=== PATIENT | male | born 1940 | race Caucasian/White ===

== ENCOUNTER 2018-02-15 23:08 | Observation (INO) | payer MEDICARE, OTHER ==
[~2018-02-15] VITALS: Ht 182.9 cm; Wt 68.0 kg
[2018-02-15 23:13] VITALS: BP 195/88; PULSE 110; RESP 18; TEMP 98.2; O2SAT 98
--- NOTE | 2018-02-15 23:31 | PD ---
HPI Chief Complaint: Psychiatric Symptoms Time Seen by Provider: 23:18 Travel History International Travel<30 days: No Contact w/Intl Traveler<30days: No Traveled to known affect area: No History of Present Illness HPI This is a 77-year-old male who presents under Seymour act initiated by the Police Department. The patient lives in [place] with his brother. At some point today he drove from [place] to the [facility]. He was found by a bystander at a gas station appearing to be confused and thus he was placed under Seymour act and brought here. The patient is alert to person, year, but believes that he is still in [place]. He was unaware that he was in [facility]. I discussed with his brother, Fantasma Mccabe ([phone]) he reports that the patient has been exhibiting signs of confusion, possible dementia, progressing over the past 6 months. He has wandered away from home twice. He plans on having him see his primary care physician about this issue when he returns to [place]. The patient has no significant past medical history that the brother is aware of. He has no psychiatric history. The patient has no medical complaints at this time. [facility] Past Medical History Diminished Hearing: Yes Hypertension: Yes (PER PATIENT) Tetanus Vaccination: Unknown Past Surgical History Surgical History: Unable to Obtain Social History Alcohol Use: Yes ([facility]) Tobacco Use: Yes Substance Use: No Allergies-Medications (Allergen,Severity, Reaction): Coded Allergies: No Known Allergies (Verified Allergy, Unknown, 02/15/18) Reported Meds & Prescriptions Reported Meds & Active Scripts Active Active Prescriptions or Reported Medications Unobtainable Review of Systems ROS Limitations: Poor Historian Except as stated in HPI: all other systems reviewed are Neg Physical Exam Exam Limitations: Poor Historian Narrative GENERAL: Pleasant well-developed well-nourished male in no acute distress. Alert to person and time, but believes that he is in [facility]. SKIN: Warm and dry. HEAD: Atraumatic. Normocephalic. EYES: Pupils equal and round. No scleral icterus. No injection or drainage. ENT: No nasal bleeding or discharge. Mucous membranes pink and moist. NECK: Trachea midline. No JVD. CARDIOVASCULAR: Regular rate and rhythm. No murmur appreciated. RESPIRATORY: No accessory muscle use. Clear to auscultation. Breath sounds equal bilaterally. GASTROINTESTINAL: Abdomen soft, non-tender, nondistended. Hepatic and splenic margins not palpable. MUSCULOSKELETAL: No obvious deformities. No clubbing. No cyanosis. No edema. NEUROLOGICAL: Awake and alert. No obvious cranial nerve deficits. Motor grossly within normal limits. Normal speech. PSYCHIATRIC: Appropriate mood and affect; insight and judgment normal. Data Data Last Documented VS Vital Signs Date Time Temp Pulse Resp B/P (MAP) Pulse Ox O2 Delivery O2 Flow Rate FiO2 02/15/18 23:13 98.2 110 18 195/88 (123) 98 Orders Orders Complete Blood Count With Diff (02/15/18 23:18) Comprehensive Metabolic Panel (02/15/18:18) Thyroid Stimulating Hormone (02/15/18:18) Urinalysis - C+S If Indicated (02/15/18:18) Chest, Single Ap (02/15/18 23:18) Drug Screen, Random Urine (02/15/18:18) Ct Brain W/O Iv Contrast(Rout) (02/15/18 ) Urine Culture (02/15/18 23:25) Place In Observation (02/16/18 ) Vital Signs (Adult) Q4H (02/16/18 00:20) Activity Oob With Assistance (02/16/18 00:20) Diet Heart Healthy (02/16/18 Breakfast) Sodium Chlor 0.9% 1000 Ml Inj (Ns 1000 M (02/16/18 00:20) Sodium Chloride 0.9% Flush (Ns Flush) (02/16/18 00:30) Sodium Chloride 0.9% Flush (Ns Flush) (02/16/18 09:00) Acetaminophen (Tylenol) (02/16/18 00:30) Ondansetron Inj (Zofran Inj) (02/16/18 00:30) Basic Metabolic Panel (Bmp) (02/17/18 06:00) Complete Blood Count With Diff (02/17/18 06:00) Pt Request For Service (02/16/18 00:20) Case Management Consult (02/16/18 00:20) Heparin Inj (Heparin Inj) (02/16/18 00:30) Naloxone Inj (Narcan Inj) (02/16/18 00:30) Docusate Sodium-Senna (Celsa-Colace) (02/16/18 09:00) Magnesium Hydroxide Liq (Milk Of Magnesi (02/16/18 00:30) Sennosides (Senokot) (02/16/18 00:30) Bisacodyl Supp (Dulcolax Supp) (02/16/18 00:30) Lactulose Liq (Lactulose Liq) (02/16/18 00:30) Admit Order (Ed Use Only) (02/16/18 00:21) Labs Laboratory Tests Test 02/15/18 23:20 02/15/18 23:25 White Blood Count 9.6 TH/MM3 Red Blood Count 4.60 MIL/MM3 Hemoglobin 15.5 GM/DL Hematocrit 45.3 % Mean Corpuscular Volume 98.3 FL Mean Corpuscular Hemoglobin 33.7 PG Mean Corpuscular Hemoglobin Concent 34.3 % Red Cell Distribution Width 13.6 % Platelet Count 241 TH/MM3 Mean Platelet Volume 7.9 FL Neutrophils (%) (Auto) 70.3 % Lymphocytes (%) (Auto) 15.8 % Monocytes (%) (Auto) 10.9 % Eosinophils (%) (Auto) 2.4 % Basophils (%) (Auto) 0.6 % Neutrophils # (Auto) 6.8 TH/MM3 Lymphocytes # (Auto) 1.5 TH/MM3 Monocytes # (Auto) 1.1 TH/MM3 Eosinophils # (Auto) 0.2 TH/MM3 Basophils # (Auto) 0.1 TH/MM3 CBC Comment DIFF FINAL Differential Comment Blood Urea Nitrogen 14 MG/DL Creatinine 1.63 MG/DL Random Glucose 106 MG/DL Total Protein 7.9 GM/DL Albumin 3.7 GM/DL Calcium Level 8.7 MG/DL Alkaline Phosphatase 105 U/L Aspartate Amino Transf (AST/SGOT) 7 U/L Alanine Aminotransferase (ALT/SGPT) 10 U/L Total Bilirubin 1.2 MG/DL Sodium Level 139 MEQ/L Potassium Level 3.9 MEQ/L Chloride Level 104 MEQ/L Carbon Dioxide Level 25.4 MEQ/L Anion Gap 10 MEQ/L Estimat Glomerular Filtration Rate 41 ML/MIN Thyroid Stimulating Hormone 3rd Gen 2.250 uIU/ML Urine Color YELLOW Urine Turbidity CLEAR Urine pH 5.5 Urine Specific [place] 1.024 Urine Protein 30 mg/dL Urine Glucose (UA) NEG mg/dL Urine Ketones 10 mg/dL Urine Occult Blood NEG Urine Nitrite NEG Urine Bilirubin NEG Urine Urobilinogen LESS THAN 2.0 MG/DL Urine Leukocyte Esterase NEG Urine RBC 2 /hpf Urine WBC 2 /hpf Urine Squamous Epithelial Cells <1 /hpf Urine Bacteria RARE /hpf Urine Hyaline Casts 3 /lpf Urine Mucus FEW /lpf Microscopic Urinalysis Comment CATH-CULTURE IND Urine Opiates Screen NEG Urine Barbiturates Screen NEG Urine Amphetamines Screen NEG Urine Benzodiazepines Screen NEG Urine Cocaine Screen NEG Urine Cannabinoids Screen NEG MDM Medical Decision Making Medical Screen Exam Complete: Yes Emergency Medical Condition: Yes Medical Record Reviewed: Yes Differential Diagnosis Dementia, delirium, sepsis, meningitis, psychosis Narrative Course 77-year-old male who by history appears to have had progressive confusion over the past 6 months, certainly his history is most consistent with dementia. He has no psychiatric issue that would require psychiatric evaluation unless the Seymour act will be lifted by Dr. Shoemaker. I did discuss with the brother that the hospice case manager will get in touch with him in regards to facilitating transport back home. The brother reports that he does have people who would be able to come and package pick up the patient and have him brought back home and he plans on having him follow-up with his primary care physician as soon as he returns home. CT brain reveals no acute abnormality's, old lacunar infarct, chest x-ray reveals no acute abnormalities, GFR is 41 otherwise lab work is unremarkable. I discussed with the hospice case manager to help facilitate transportation at some point. The patient will be admitted for observation. Diagnosis Primary Impression: Dementia Admitting Information Admitting Physician Requests: Observation Scripts Unable to Obtain Active Prescriptions or Reported Meds Alhaji Live Feb 15, 2018 23:31
[2018-02-15 23:42] LABS: BACTERIA, URINE RARE /hpf; BILIRUBIN, URINE NEG (NEG); BLOOD, URINE NEG (NEG); GLUCOSE,URINE NEG (NEG); HYALINE CAST, URINE 3 /lpf (RARE); KETONE, URINE 10 mg/dL (NEG); MUCUS URINE FEW /lpf (OCC); NITRITE,URINE NEG (NEG); PH, URINE 5.5 (5.0-8.5); SQUAMOUS EPITHELIAL CELL URINE <1 /hpf (0-5); URINE COLOR YELLOW (YELLW/STRAW); URINE LEUKOCYTE ESTERASE NEG (NEG)
[2018-02-15 23:49] LABS: AUTOMATED NEUTROPHIL # 6.8 TH/MM3 (1.8-7.7); BASOPHIL # 0.1 TH/MM3 (0-0.2); BASOPHIL % 0.6 % (0.0-2.0); EOSINOPHIL # 0.2 TH/MM3 (0-0.4); EOSINOPHIL % 2.4 % (0.0-4.0); HEMATOCRIT 45.3 % (39.0-51.0); HEMOGLOBIN 15.5 GM/DL (13.0-17.0); LYMPH % 15.8 % (9.0-44.0); LYMPHOCYTE # 1.5 TH/MM3 (1.0-4.8); MEAN CELL VOLUME 98.3 FL (80.0-100.0); MEAN CORPUSCULAR HEMOGLOBIN 33.7 PG (27.0-34.0); MEAN CORPUSCULAR HGB CONC 34.3 % (32.0-36.0); MEAN PLATELET VOLUME 7.9 FL (7.0-11.0); MONO % 10.9 % (0.0-8.0); MONOCYTE # 1.1 TH/MM3 (0-0.9); NEUT % 70.3 % (16.0-70.0); PLATELET COUNT 241 TH/MM3 (150-450); RED CELL DISTRIBUTION WIDTH 13.6 % (11.6-17.2); WHITE BLOOD COUNT 9.6 TH/MM3 (4.0-11.0)
--- NOTE | 2018-02-15 23:53 | RADRPT ---
EXAM DATE: 02/15/2018 11:40 PM EDT AGE/SEX: 77 years / Male INDICATIONS: Shortness of breath. CLINICAL DATA: This is the patient's initial encounter. Patient reports that signs and symptoms have been present for 3 days and indicates a pain score of 2/10. MEDICAL/SURGICAL HISTORY: None. None. COMPARISON: No prior exams available for comparison. FINDINGS: A single AP view of the chest demonstrates the lungs to be symmetrically aerated without evidence of mass, infiltrate or effusion. Linear atelectasis or scarring right lung base. The cardiomediastinal c ontours are unremarkable. Osseous structures are intact. CONCLUSION: No active disease. Linear scarring right lung base. Electronically signed by: Trevor Lamas MD 02/15/2018 11:51 PM EDT
[2018-02-15 23:56] LABS: ALBUMIN 3.7 GM/DL (3.4-5.0); ALT (GPT) 10 U/L (12-78); AST (GOT) 7 U/L (15-37); BICARBONATE 25.4 MEQ/L (21.0-32.0); BLOOD UREA NITROGEN 14 MG/DL (7-18); CALCIUM 8.7 MG/DL (8.5-10.1); CHLORIDE 104 MEQ/L (98-107); CREATININE 1.63 MG/DL (0.60-1.30); GLOMERULAR FILTRATION RATE 41 ML/MIN (>89); GLUCOSE,RANDOM 106 MG/DL (74-106); SODIUM (NA) 139 MEQ/L (136-145)
--- NOTE | 2018-02-15 23:59 | RADRPT ---
EXAM DATE: 02/15/2018 11:49 PM EDT AGE/SEX: 77 years / Male INDICATIONS: Altered mental status. CLINICAL DATA: This is the patient's initial encounter. Patient reports that signs and symptoms have been present for 1 day and indicates a pain score of 0/10. MEDICAL/SURGICAL HISTORY: Hypertension. None. RADIATION DOSE: 56.35 CTDI (mGy) COMPARISON: No prior exams available for comparison. TECHNIQUE: CT of the head without contrast. Using automated exposure control and adjustment of the mA and/or kV according to patient size, radiation dose was kept as low as reasonably achievable to ob tain optimal diagnostic quality images. FINDINGS: Cerebrum: Lacunar infarct noted left basal ganglia, remote. Chronic white matter ischemic changes kennedy spected. No mass, hemorrhage or shift. No recent infarct identified. Posterior Fossa: The cerebellum and brainstem are intact. The 4th ventricle is midline. The cerebe llopontine angle is unremarkable. Extracranial: The visualized portion of the orbits is intact. Skull: The calvaria is intact. No evidence of skull fracture. CONCLUSION: 1. No acute intracranial abnormalities. 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 Electronically signed by: Trevor Lamas MD 02/15/2018 11:57 PM EDT
[2018-02-16] VITALS (7 sets, daily range): BP systolic 148–178; BP diastolic 61–85; PULSE 59–73; RESP 16–20; TEMP 97.6–99.4; O2SAT 94–97
[2018-02-16 00:06] LABS: ALKALINE PHOSPHATASE 105 U/L (45-117); TOTAL BILIRUBIN ADULT 1.2 MG/DL (0.2-1.0); TOTAL PROTEIN 7.9 GM/DL (6.4-8.2)
--- NOTE | 2018-02-16 00:10 | PD ---
Physical Exam Date Seen by Provider: Feb 16, 2018 Data Data Last Documented VS Vital Signs Date Time Temp Pulse Resp B/P (MAP) Pulse Ox O2 Delivery O2 Flow Rate FiO2 02/15/18 23:13 98.2 110 18 195/88 (123) 98 Orders Orders Complete Blood Count With Diff (02/15/18 23:18) Comprehensive Metabolic Panel (02/15/18 23:18) Thyroid Stimulating Hormone (02/15/18 23:18) Urinalysis - C+S If Indicated (02/15/18 23:18) Chest, Single Ap (02/15/18 23:18) Drug Screen, Random Urine (02/15/18 23:18) Ct Brain W/O Iv Contrast(Rout) (02/15/18 ) Urine Culture (02/15/18 23:25) Labs Laboratory Tests Test 02/15/18 23:20 02/15/18 23:25 White Blood Count 9.6 TH/MM3 Red Blood Count 4.60 MIL/MM3 Hemoglobin 15.5 GM/DL Hematocrit 45.3 % Mean Corpuscular Volume 98.3 FL Mean Corpuscular Hemoglobin 33.7 PG Mean Corpuscular Hemoglobin Concent 34.3 % Red Cell Distribution Width 13.6 % Platelet Count 241 TH/MM3 Mean Platelet Volume 7.9 FL Neutrophils (%) (Auto) 70.3 % Lymphocytes (%) (Auto) 15.8 % Monocytes (%) (Auto) 10.9 % Eosinophils (%) (Auto) 2.4 % Basophils (%) (Auto) 0.6 % Neutrophils # (Auto) 6.8 TH/MM3 Lymphocytes # (Auto) 1.5 TH/MM3 Monocytes # (Auto) 1.1 TH/MM3 Eosinophils # (Auto) 0.2 TH/MM3 Basophils # (Auto) 0.1 TH/MM3 CBC Comment DIFF FINAL Differential Comment Blood Urea Nitrogen 14 MG/DL Creatinine 1.63 MG/DL Random Glucose 106 MG/DL Total Protein 7.9 GM/DL Albumin 3.7 GM/DL Calcium Level 8.7 MG/DL Alkaline Phosphatase 105 U/L Aspartate Amino Transf (AST/SGOT) 7 U/L Alanine Aminotransferase (ALT/SGPT) 10 U/L Total Bilirubin 1.2 MG/DL Sodium Level 139 MEQ/L Potassium Level 3.9 MEQ/L Chloride Level 104 MEQ/L Carbon Dioxide Level 25.4 MEQ/L Anion Gap 10 MEQ/L Estimat Glomerular Filtration Rate 41 ML/MIN Thyroid Stimulating Hormone 3rd Gen 2.250 uIU/ML Urine Color YELLOW Urine Turbidity CLEAR Urine pH 5.5 Urine Specific [place] 1.024 Urine Protein 30 mg/dL Urine Glucose (UA) NEG mg/dL Urine Ketones 10 mg/dL Urine Occult Blood NEG Urine Nitrite NEG Urine Bilirubin NEG Urine Urobilinogen LESS THAN 2.0 MG/DL Urine Leukocyte Esterase NEG Urine RBC 2 /hpf Urine WBC 2 /hpf Urine Squamous Epithelial Cells <1 /hpf Urine Bacteria RARE /hpf Urine Hyaline Casts 3 /lpf Urine Mucus FEW /lpf Microscopic Urinalysis Comment CATH-CULTURE IND Urine Opiates Screen NEG Urine Barbiturates Screen NEG Urine Amphetamines Screen NEG Urine Benzodiazepines Screen NEG Urine Cocaine Screen NEG Urine Cannabinoids Screen NEG MDM Medical Record Reviewed: Yes Supervised Visit with GERMAIN: Yes Narrative Course Patient is a 77-year-old male who presents the emergency room under Seymour act that was initiated by Police Department as patient was found at a gas station appearing confused. Patient lives at home with his brother who is currently in the hospital having a surgical procedure. Apparently, patient took his brother' s keys and ended up in [facility]. Patients brother was notified, reports that patient has wandered off like this in the past- reports concerns for possible dementia. Patient denies si/hi at this time. He is pleasantly confused. Seymour Act lifted as patient displays no intent to harm himself or others. Diagnosis Primary Impression: Dementia Scripts Unable to Obtain Active Prescriptions or Reported Meds Milly Shoemaker DO Feb 16, 2018 00:10
[2018-02-16] MEDS: SODIUM CHLOR 0.9% 1000 ML INJ 1,000 ML IV SCH ×5 (00:20→20:05)
[2018-02-16] MEDS ORDERED: ONDANSETRON ODT 4 MG TAB PO PRN (00:30)
[2018-02-16] MEDS ORDERED: SODIUM CHLORIDE 0.9% FLUSH 10 ML FLUSH IV FLUSH PRN (00:30)
[2018-02-16] MEDS ORDERED: NALOXONE HCL 0.4 MG/ML AMP IV PUSH PRN (00:30)
[2018-02-16] MEDS ORDERED: LACTULOSE SYRUP 20 GM/30 ML CUP PO PRN (00:30)
[2018-02-16] MEDS ORDERED: SENNOSIDES 8.6 MG TAB PO PRN (00:30)
[2018-02-16] MEDS ORDERED: MAGNESIUM HYDROXIDE SUSP 30 ML CUP PO PRN (00:30)
[2018-02-16] MEDS ORDERED: BISACODYL 10 MG SUPP RECTAL PRN (00:30)
[2018-02-16] MEDS ORDERED: ACETAMINOPHEN 325 MG TAB PO PRN (00:30)
[2018-02-16] MEDS ORDERED: LORazepam 1 MG TAB PO PRN (03:45)
[2018-02-16] MEDS ORDERED: LORazepam 2 MG TAB PO PRN (03:45)
[2018-02-16] MEDS ORDERED: FLUMAZENIL 0.5 MG/5 ML VIAL IV PUSH PRN (03:45)
[2018-02-16] MEDS ORDERED: LORazepam 2 MG/ML VIAL IV PUSH PRN ×4 (03:45)
--- NOTE | 2018-02-16 03:45 | HHI.HP ---
[facility]PI [facility] Physician Unknown Admission Diagnosis Dementia Diagnoses: Travel History International Travel<30 Days: No Contact w/Intl Traveler <30 Da: No Traveled to Known Affected Are: No History of Present Illness 77-year-old male who presented to the emergency department under Seymour act by the Police Department. The patient is unable to describe the events that led to his arrival in the ED. Per ED documentation the patient was found at a gas station in a confused state and was placed under Seymour act and brought to the emergency department for further evaluation. The patient reports that he lives in [place]. He states he drove to [facility] to see "if they have all the sickness here." He is cooperative and attempts to answer my questions but states he cannot remember any of his past medical history. He does not know what medications he takes. The patient reportedly lives with his brother, Fantasma Mccabe ([phone]) who reports that the patient has been exhibiting increasing confusion that has been progressing over the past 6 months. The patient denies any pain. He has no complaints at this time. Review of Systems Except as stated in HPI: all other systems reviewed are Neg Past Family Social History Past Medical History Per ED documentation, the patient's brother reports that the patient has no significant past medical history Past Surgical History The patient states he had surgery on his leg although he does not know which one or what the surgery was for Reported Medications Reported Meds & Active Scripts Active Active Prescriptions or Reported Medications Unobtainable Allergies: Coded Allergies: No Known Allergies (Verified Allergy, Unknown, 02/15/18) Family History Negative for CAD/DM Social History Smokes approximately 1 pack per day. Drinks 2-3 beers daily. Denies illicit drugs. Physical Exam Vital Signs Vital Signs Date Time Temp Pulse Resp B/P (MAP) Pulse Ox O2 Delivery O2 Flow Rate FiO2 02/15/18 23:13 98.2 110 18 195/88 (123) 98 Physical Exam GENERAL: male sitting up in bed SKIN: No rashes, ecchymoses or lesions. Cool and dry. HEAD: Atraumatic. Normocephalic. No temporal or scalp tenderness. EYES: Pupils equal round and reactive. Extraocular motions intact. No scleral icterus. No injection or drainage. ENT: Nose without bleeding, purulent drainage or septal hematoma. Throat without erythema, tonsillar hypertrophy or exudate. Uvula midline. Airway patent. NECK: Trachea midline. No JVD or lymphadenopathy. Supple, nontender, no meningeal signs. CARDIOVASCULAR: Regular rate and rhythm without murmurs, gallops, or rubs. RESPIRATORY: Clear to auscultation. Breath sounds equal bilaterally. No wheezes , rales, or rhonchi. GASTROINTESTINAL: Abdomen soft, non-tender, nondistended. No hepato-splenomegaly , or palpable masses. No guarding. MUSCULOSKELETAL: Extremities without clubbing, cyanosis, or edema. No joint tenderness, effusion, or edema noted. No calf tenderness. NEUROLOGICAL: Awake and alert. Pleasantly confused. Cranial nerves II through XII intact. Motor and sensory grossly within normal limits. Normal speech. Laboratory Laboratory Tests Test 02/15/18 23:20 02/15/18 23:25 White Blood Count 9.6 Red Blood Count 4.60 Hemoglobin 15.5 Hematocrit 45.3 Mean Corpuscular Volume 98.3 Mean Corpuscular Hemoglobin 33.7 Mean Corpuscular Hemoglobin Concent 34.3 Red Cell Distribution Width 13.6 Platelet Count 241 Mean Platelet Volume 7.9 Neutrophils (%) (Auto) 70.3 Lymphocytes (%) (Auto) 15.8 Monocytes (%) (Auto) 10.9 Eosinophils (%) (Auto) 2.4 Basophils (%) (Auto) 0.6 Neutrophils # (Auto) 6.8 Lymphocytes # (Auto) 1.5 Monocytes # (Auto) 1.1 Eosinophils # (Auto) 0.2 Basophils # (Auto) 0.1 CBC Comment DIFF FINAL Differential Comment Blood Urea Nitrogen 14 Creatinine 1.63 Random Glucose 106 Total Protein 7.9 Albumin 3.7 Calcium Level 8.7 Alkaline Phosphatase 105 Aspartate Amino Transf (AST/SGOT) 7 Alanine Aminotransferase (ALT/SGPT) 10 Total Bilirubin 1.2 Sodium Level 139 Potassium Level 3.9 Chloride Level 104 Carbon Dioxide Level 25.4 Anion Gap 10 Estimat Glomerular Filtration Rate 41 Thyroid Stimulating Hormone 3rd Gen 2.250 Urine Color YELLOW Urine Turbidity CLEAR Urine pH 5.5 Urine Specific [place] 1.024 Urine Protein 30 Urine Glucose (UA) NEG Urine Ketones 10 Urine Occult Blood NEG Urine Nitrite NEG Urine Bilirubin NEG Urine Urobilinogen LESS THAN 2.0 Urine Leukocyte Esterase NEG Urine RBC 2 Urine WBC 2 Urine Squamous Epithelial Cells <1 Urine Bacteria RARE Urine Hyaline Casts 3 Urine Mucus FEW Microscopic Urinalysis Comment CATH-CULTURE IND Urine Opiates Screen NEG Urine Barbiturates Screen NEG Urine Amphetamines Screen NEG Urine Benzodiazepines Screen NEG Urine Cocaine Screen NEG Urine Cannabinoids Screen NEG Date/Time Source Procedure Growth Status 02/15/18 23:25 Urine Clean Catch Urine Culture Pending Received Result Diagram: 02/15/18231902/15/182319 Caprini VTE Risk Assessment Caprini VTE Risk Assessment: Mod/High Risk (score >= 2) Caprini Risk Assessment Model Point Value = 1 Point Value = 2 Point Value = 3 Point Value = 5 Age 41-60 Minor surgery BMI > 25 kg/m2 Swollen legs Varicose veins or History of unexplained or recurrent spontaneous Oral contraceptives or hormone replacement Sepsis (< 1 month) Serious lung disease, including pneumonia (< 1 month) Abnormal pulmonary function Acute myocardial infarction Congestive heart failure (< 1 month) History of inflammatory bowel disease Medical patient at bed rest Age 61-74 Arthroscopic surgery Major open surgery (> 45 min) Laparoscopic surgery (> 45 min) Malignancy Confined to bed (> 72 hours) Immobilizing plaster cast Central venous access Age >= 75 History of VTE Family history of VTE Factor V Leiden Prothrombin 10003D Lupus anticoagulant Anticardiolipin antibodies Elevated serum homocysteine Heparin-induced thrombocytopenia Other congenital or acquired thrombophilia Stroke (< 1 month) Elective arthroplasty Hip, pelvis, or leg fracture Acute spinal cord injury (< 1 month) Prophylaxis Regimen Total Risk Factor Score Risk Level Prophylaxis Regimen 0-1 Low Early ambulation 2 Moderate Order ONE of the following: *Sequential Compression Device (SCD) *Heparin 5000 units SQ BID 3-4 Higher Order ONE of the following medications: *Heparin 5000 units SQ TID *Enoxaparin/Lovenox 40 mg SQ daily (WT < 150 kg, CrCl > 30 mL/min) *Enoxaparin/Lovenox 30 mg SQ daily (WT < 150 kg, CrCl > 10-29 mL/min) *Enoxaparin/Lovenox 30 mg SQ BID (WT < 150 kg, CrCl > 30 mL/min) AND/OR *Sequential Compression Device (SCD) 5 or more Highest Order ONE of the following medications: *Heparin 5000 units SQ TID (Preferred with Epidurals) *Enoxaparin/Lovenox 40 mg SQ daily (WT < 150 kg, CrCl > 30 mL/min) *Enoxaparin/Lovenox 30 mg SQ daily (WT < 150 kg, CrCl > 10-29 mL/min) *Enoxaparin/Lovenox 30 mg SQ BID (WT < 150 kg, CrCl > 30 mL/min) AND *Sequential Compression Device (SCD) Assessment and Plan Assessment and Plan Assessment/plan: 1. Dementia/altered mental status Head CT negative for acute process Urine drug screen negative Alcohol level pending Suspect progressively worsening chronic dementia Case management consulted to assist with transport back to [place] where the patient will be cared for by his brother 2. Acute kidney injury Likely chronic component, no baseline for comparison IV fluid hydration Monitor renal function 3. Alcohol abuse Thiamine/folate/multivitamin CIWA protocol Monitor for signs of withdrawal FEN Heart healthy diet Electrolytes: Monitor and replete as needed Heparin NS at 100 cc/hour Milly Neves MD Feb 16, 2018 03:45
[2018-02-16] MEDS: SODIUM CHLORIDE 0.9% FLUSH 10 ML FLUSH IV FLUSH SCH ×2 (09:00→21:00)
[2018-02-16] MEDS: DOCUSATE SODIUM 50 MG/SENNA 8.6 MG TAB PO SCH ×2 (09:00→21:00)
[2018-02-16] MEDS: THIAMINE HCL 100 MG TAB PO SCH (10:05)
[2018-02-16] MEDS: MULTIVITAMINS/MINERALS THERAPEUTIC TAB PO SCH (10:05)
[2018-02-16] MEDS: FOLIC ACID 1 MG TAB PO SCH (10:05)
[2018-02-16] MEDS ORDERED: CIPROFLOXACIN 500 MG TAB PO ONE (12:15)
[2018-02-16] MEDS: HEPARIN SODIUM - SQ 10,000 UNITS/ML VIAL SQ SCH ×3 (13:07→23:35)
--- NOTE | 2018-02-16 17:41 | HHI.PR ---
Subjective Remarks Follow up on patient with dementia. Patient seen and examined. Patient states he feels well. He denies any medical complaints. He denies any fever chills. Denies any headache, vision changes or dizziness. He denies any nausea, vomiting or abdominal pain. He denies any chest pain or dyspnea. He denies any complaints of dysuria. Denies any diarrhea or constipation. He knows he is in the hospital but cannot recall the name. He is able to correctly answer the year, city and state. He is unable to tell me who the president is. Reportedly, patient lives in [place] with his brother and drove his brother' s car to [facility] and was found confused at a gas station in place under Seymour act. Seymour act was listed in the ED. Patient recently underwent total knee replacement surgery and is unable to care for the patient at this time. Objective Vitals Vital Signs Date Time Temp Pulse Resp B/P (MAP) Pulse Ox O2 Delivery O2 Flow Rate FiO2 02/16/18 15:02 97.6 65 16 148/65 (92) 95 02/16/18 13:45 98.0 61 16 160/69 (99) 96 02/16/18 13:22 02/16/18 13:08 65 18 156/68 (97) 95 Room Air 02/16/18 10:02 65 20 175/77 (109) 95 Room Air 02/16/18 06:18 98.2 70 16 178/85 (116) 94 Room Air 02/15/18 23:13 98.2 110 18 195/88 (123) 98 Result Diagram: 02/15/18 2320 02/15/18 2320 Imaging Last Impressions Chest X-Ray 02/15/18 2318 Signed Impressions: CONCLUSION: No active disease. Linear scarring right lung base. Head CT 02/15/18 0000 Signed Impressions: CONCLUSION: 1. No acute intracranial abnormalities. 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 Objective Remarks GENERAL: Well-developed well-nourished elderly male patient, in no acute distress. Awake and alert. A&O x 2. SKIN: No rashes, ecchymoses or lesions. Cool and dry. HEAD: Atraumatic. Normocephalic. No temporal or scalp tenderness. EYES: Pupils equal round and reactive. Extraocular motions intact. No scleral icterus. No injection or drainage. ENT: Nose without bleeding or purulent drainage. Airway patent. MMM. NECK: Trachea midline. CARDIOVASCULAR: Regular rate and rhythm without murmurs, gallops, or rubs. RESPIRATORY: Clear to auscultation. Breath sounds equal bilaterally. No wheezes , rales, or rhonchi. GASTROINTESTINAL: Abdomen soft, non-tender, nondistended. No hepato-splenomegaly , or palpable masses. No guarding. MUSCULOSKELETAL: Extremities without clubbing, cyanosis, or edema. No calf tenderness. NEUROLOGICAL: Awake and alert. Pleasantly confused. Cranial nerves II through XII grossly intact. Motor and sensory grossly within normal limits. Normal speech. PSYCHIATRIC: Calm and cooperative with examination. Procedures None A/P Assessment and Plan 77-year-old male with suspected dementia who presented to the emergency department under Seymour act. Altered mental status/suspected dementia Patient lives with his brother who has recently undergone total knee replacement surgery and is unable to care for him at this time Patient is unable to return home alone, will need supervision at discharge Urine tox screen negative -CM assisting with discharge plan. -fall precautions -PT eval/tx Possible JAQUELINE on CKD Creatinine 1.63, no labs available for baseline comparison -Given IV fluids -Avoid nephrotoxic agent -Continue to monitor kidney function, repeat BMP in a.m. DVT prophylaxis -Heparin Yue Schwab Feb 16, 2018 17:41
[2018-02-17 04:06] VITALS: BP 155/84; PULSE 66; RESP 16; TEMP 97.7; O2SAT 96
[2018-02-17 07:48] VITALS: BP 147/65; PULSE 63; RESP 20; TEMP 98; O2SAT 97
[2018-02-17 07:54] LABS: BICARBONATE 21.8 MEQ/L (21.0-32.0); CALCIUM 8.3 MG/DL (8.5-10.1); CREATININE 1.6 MG/DL (0.60-1.30)
[2018-02-17] MEDS: DOCUSATE SODIUM 50 MG/SENNA 8.6 MG TAB PO SCH ×2 (09:06→20:19)
[2018-02-17] MEDS: MULTIVITAMINS/MINERALS THERAPEUTIC TAB PO SCH (09:06)
[2018-02-17] MEDS: SODIUM CHLORIDE 0.9% FLUSH 10 ML FLUSH IV FLUSH SCH ×2 (09:06→20:19)
[2018-02-17] MEDS: FOLIC ACID 1 MG TAB PO SCH (09:06)
[2018-02-17] MEDS: THIAMINE HCL 100 MG TAB PO SCH (09:06)
[2018-02-17] MEDS ORDERED: INFLUENZA VIRUS VACCINE (QUADRIVALENT) 0.5 ML SYR IM ONE (10:00)
[2018-02-17 11:42] VITALS: BP 179/72; PULSE 69; RESP 16; TEMP 97.4; O2SAT 97
--- NOTE | 2018-02-17 11:43 | HHI.PR ---
Subjective Remarks Follow up on patient with dementia. Patient seen and examined. Patient denies any medical complaints. States he feels well. Denies any fever chills. Denies any nausea, vomiting or abdominal pain. Denies any chest pain or shortness of breath. Denies any urinary difficulties, diarrhea or constipation. Discussed with nursing staff, no acute issues noted however patient did try to leave several times last night. Objective Vitals Vital Signs Date Time Temp Pulse Resp B/P (MAP) Pulse Ox O2 Delivery O2 Flow Rate FiO2 02/17/18 07:48 98.0 63 20 147/65 (92) 97 02/17/18 04:06 97.7 66 16 155/84 (107) 96 02/16/18 23:31 97.7 59 17 171/61 (97) 97 02/16/18 19:41 99.4 73 18 174/74 (107) 97 02/16/18 15:02 97.6 65 16 148/65 (92) 95 02/16/18 13:45 98.0 61 16 160/69 (99) 96 02/16/18 13:22 02/16/18 13:08 65 18 156/68 (97) 95 Room Air I/O 02/16/18 02/16/18 02/16/18 02/17/18 02/17/18 02/17/18 07:00 15:00 23:00 07:00 15:00 23:00 Intake Total 981 ml Balance 981 ml Intake Oral 480 ml IV Total 501 ml # Voids 3 Result Diagram: 02/15/18 2320 02/17/18 0630 Imaging Last Impressions Chest X-Ray 02/15/18 2318 Signed Impressions: CONCLUSION: No active disease. Linear scarring right lung base. Head CT 02/15/18 0000 Signed Impressions: CONCLUSION: 1. No acute intracranial abnormalities. 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 Objective Remarks GENERAL: Well-developed well-nourished elderly male patient, in no acute distress. Awake and alert. A&O x 2. SKIN: No rashes, ecchymoses or lesions. Cool and dry. HEAD: Atraumatic. Normocephalic. EYES: Pupils equal round and reactive. Extraocular motions intact. No scleral icterus. No injection or drainage. ENT: Nose without bleeding or purulent drainage. Airway patent. MMM. NECK: Trachea midline. CARDIOVASCULAR: Regular rate and rhythm without murmurs, gallops, or rubs. RESPIRATORY: Nonlabored. Clear to auscultation. Breath sounds equal bilaterally. No wheezes, rales, or rhonchi. GASTROINTESTINAL: Abdomen soft, non-tender, nondistended. No guarding. MUSCULOSKELETAL: Extremities without clubbing, cyanosis, or edema. No calf tenderness. NEUROLOGICAL: Awake and alert. Pleasantly confused. Cranial nerves II through XII grossly intact. Motor and sensory grossly within normal limits. Nonfocal. Normal speech. PSYCHIATRIC: Calm and cooperative with examination. Procedures None A/P Assessment and Plan 77-year-old male with suspected dementia who presented to the emergency department under [place] act. Altered mental status/suspected dementia Patient lives with his brother who has recently undergone total knee replacement surgery and is unable to care for him at this time Patient is unable to return home alone, will need supervision at discharge Urine tox screen negative -CM assisting with discharge plan. CM discussed with patients brother today who is still in the hospital but plans to have brother return home once he himself is discharged from the hospital. -fall precautions -PT eval - no PT needs identified but requires supervision at home for safety Hypertension -Patient started on Norvasc 5 mg daily -Clonidine as needed with parameters -Continue to monitor BP and adjust treatment accordingly Probable CKD Creatinine 1.63, no labs available for baseline comparison -Given IV fluids -creatinine stable -Avoid nephrotoxic agent -Continue to monitor kidney function, repeat BMP in a.m. DVT prophylaxis -Heparin Discharge Planning Not ready for discharge secondary to no safe discharge plan at this time. Patient requires supervision at home and his brother who is a secondary teacher is currently in the hospital having recently undergone a total knee replacement. Case management assisting with ongoing DC planning. Yue Schwab Feb 17, 2018 11:43
[2018-02-17] MEDS ORDERED: amLODIPine BESYLATE 5 MG TAB PO ONE (11:45)
[2018-02-17] MEDS ORDERED: cloNIDine HCL 0.1 MG TAB PO PRN (11:45)
[2018-02-17] MEDS: HEPARIN SODIUM - SQ 10,000 UNITS/ML VIAL SQ SCH ×2 (12:38→22:54)
[2018-02-17 13:22] LABS: AUTOMATED NEUTROPHIL # 4.8 TH/MM3 (1.8-7.7); BASOPHIL # 0.1 TH/MM3 (0-0.2); EOSINOPHIL # 0.3 TH/MM3 (0-0.4); EOSINOPHIL % 3.7 % (0.0-4.0); HEMATOCRIT 38.2 % (39.0-51.0); LYMPH % 15.9 % (9.0-44.0); LYMPHOCYTE # 1.1 TH/MM3 (1.0-4.8); MEAN CELL VOLUME 98.4 FL (80.0-100.0); MEAN CORPUSCULAR HEMOGLOBIN 33.5 PG (27.0-34.0); MEAN CORPUSCULAR HGB CONC 34.1 % (32.0-36.0); MONO % 11.9 % (0.0-8.0); MONOCYTE # 0.8 TH/MM3 (0-0.9); NEUT % 67.5 % (16.0-70.0); PLATELET COUNT 223 TH/MM3 (150-450); RED BLOOD COUNT 3.89 MIL/MM3 (4.50-5.90); RED CELL DISTRIBUTION WIDTH 13.6 % (11.6-17.2)
[2018-02-17 15:57] VITALS: BP 129/56; PULSE 73; RESP 16; TEMP 97.9; O2SAT 96
[2018-02-17 19:57] VITALS: BP 141/51; PULSE 84; RESP 16; TEMP 97.4; O2SAT 98
[2018-02-17 23:31] VITALS: BP 154/69; PULSE 64; RESP 16; TEMP 98.1; O2SAT 95
[2018-02-18 03:41] VITALS: BP 158/68; PULSE 83; RESP 16; TEMP 98.1; O2SAT 95
[2018-02-18 07:51] VITALS: BP 132/62; PULSE 88; RESP 18; TEMP 98.9; O2SAT 95
[2018-02-18] MEDS: DOCUSATE SODIUM 50 MG/SENNA 8.6 MG TAB PO SCH ×2 (09:00→21:00)
[2018-02-18] MEDS: MULTIVITAMINS/MINERALS THERAPEUTIC TAB PO SCH (09:14)
[2018-02-18] MEDS: FOLIC ACID 1 MG TAB PO SCH (09:15)
[2018-02-18] MEDS: SODIUM CHLORIDE 0.9% FLUSH 10 ML FLUSH IV FLUSH SCH ×2 (09:15→21:00)
[2018-02-18] MEDS: THIAMINE HCL 100 MG TAB PO SCH (09:15)
[2018-02-18] MEDS: amLODIPine BESYLATE 5 MG TAB PO SCH (09:15)
--- NOTE | 2018-02-18 11:18 | HHI.PR ---
Subjective Remarks Patient says he is feeling well. No acute changes per nursing. Objective Vital Signs Date Time Temp Pulse Resp B/P (MAP) Pulse Ox O2 Delivery O2 Flow Rate FiO2 02/18/18 07:51 98.9 88 18 132/62 (85) 95 02/18/18 03:41 98.1 83 16 158/68 (98) 95 02/17/18 23:31 98.1 64 16 154/69 (97) 95 02/17/18 19:57 97.4 84 16 141/51 (81) 98 02/17/18 15:57 97.9 73 16 129/56 (80) 96 02/17/18 11:42 97.4 69 16 179/72 (107) 97 I/O 02/17/18 02/17/18 02/17/18 02/18/18 02/18/18 02/18/18 07:00 15:00 23:00 07:00 15:00 23:00 Intake Total 981 ml Balance 981 ml Intake Oral 480 ml IV Total 501 ml Result Diagram: 02/17/18 1258 02/17/18 0630 Objective Remarks GENERAL: Patient sitting up in bed. Appears comfortable. SKIN: Warm and dry. HEAD: Normocephalic. EYES: No scleral icterus. No injection or drainage. NECK: Supple, trachea midline. No JVD or lymphadenopathy. CARDIOVASCULAR: Regular rate and rhythm without murmurs, gallops, or rubs. RESPIRATORY: Breath sounds equal bilaterally. No accessory muscle use. GASTROINTESTINAL: Abdomen soft, non-tender, nondistended. MUSCULOSKELETAL: No cyanosis, or edema. BACK: Nontender without obvious deformity. No CVA tenderness. A/P Assessment and Plan 77-year-old male with suspected dementia who presented to the emergency department under [place] act. //Altered mental status/suspected dementia Patient lives with his brother who has recently undergone total knee replacement surgery and is unable to care for him at this time Patient is unable to return home alone, will need supervision at discharge Urine tox screen negative -CM assisting with discharge plan. CM discussed with patients brother today who is still in the hospital but plans to have brother return home once he himself is discharged from the hospital. -fall precautions -PT eval - no PT needs identified but requires supervision at home for safety = Patient's son is coming into town, hopefully patient can go home tomorrow. //Hypertension -Patient started on Norvasc 5 mg daily -Clonidine as needed with parameters -Continue to monitor BP and adjust treatment accordingly //Probable CKD Creatinine 1.63, no labs available for baseline comparison -Given IV fluids -creatinine stable -Avoid nephrotoxic agent -Continue to monitor kidney function, repeat BMP in a.m. = Stable. No need for IV. //DVT prophylaxis -Heparin Discharge Planning Patient requires supervision at home and his brother who is a inventory control specialist is currently in the hospital having recently undergone a total knee replacement. Case management assisting with ongoing DC planning. Patient's son will be traveling here reportedly today, hopefully patient can go home with family tomorrow morning. Ervin Myers MD Feb 18, 2018 11:18
[2018-02-18] MEDS: HEPARIN SODIUM - SQ 10,000 UNITS/ML VIAL SQ SCH (12:00)
[2018-02-18 13:05] VITALS: BP 124/60; PULSE 70; RESP 18; TEMP 98.7; O2SAT 96
[2018-02-18 16:55] VITALS: BP 147/65; PULSE 66; RESP 18; TEMP 98.5; O2SAT 96
[2018-02-18 19:46] VITALS: BP 141/63; PULSE 77; RESP 17; TEMP 98.3; O2SAT 97
[2018-02-19 00:01] VITALS: BP 139/64; PULSE 71; RESP 17; TEMP 98.6; O2SAT 97
[2018-02-19] MEDS: HEPARIN SODIUM - SQ 10,000 UNITS/ML VIAL SQ SCH (00:06)
[2018-02-19 04:13] VITALS: BP 141/67; PULSE 72; RESP 18; TEMP 98.4; O2SAT 95
[2018-02-19 07:34] VITALS: BP 130/60; PULSE 62; RESP 18; TEMP 98.8; O2SAT 95
--- NOTE | 2018-02-19 08:48 | HHI.FF ---
Face to Face Verification Diagnosis: (1) Dementia Adult Nurse Practitioner Order: To Evaluate: Living conditions/environment Order: To Provide: Long range planning I have seen patient Karthik Mccabe on 02/19/18. My clinical findings support the need for the requested home health care services because: Need for psychosocial assistance I certify that my clinical findings support that this patient is homebound because: Need for psychosocial assistance Ervin Myers MD Feb 19, 2018 08:48
[2018-02-19] MEDS ORDERED: AMLO5 PO (08:49)
[2018-02-19] MEDS: SODIUM CHLORIDE 0.9% FLUSH 10 ML FLUSH IV FLUSH SCH (09:00)
[2018-02-19] MEDS: DOCUSATE SODIUM 50 MG/SENNA 8.6 MG TAB PO SCH (09:00)
[2018-02-19] MEDS: MULTIVITAMINS/MINERALS THERAPEUTIC TAB PO SCH (09:28)
[2018-02-19] MEDS: THIAMINE HCL 100 MG TAB PO SCH (09:28)
[2018-02-19] MEDS: FOLIC ACID 1 MG TAB PO SCH (09:28)
[2018-02-19] MEDS: amLODIPine BESYLATE 5 MG TAB PO SCH (09:28)
--- NOTE | 2018-02-19 09:28 | HHI.PR ---
Subjective Remarks Patient says he is feeling well. Feels like going home. No acute changes. Objective Vital Signs Date Time Temp Pulse Resp B/P (MAP) Pulse Ox O2 Delivery O2 Flow Rate FiO2 02/19/18 07:34 98.8 62 18 130/60 (83) 95 02/19/18 04:13 98.4 72 18 141/67 (91) 95 02/19/18 00:01 98.6 71 17 139/64 (89) 97 02/18/18 19:46 98.3 77 17 141/63 (89) 97 02/18/18 16:55 98.5 66 18 147/65 (92) 96 02/18/18 13:05 98.7 70 18 124/60 (81) 96 I/O 02/18/18 02/18/18 02/18/18 02/19/18 02/19/18 02/19/18 07:00 15:00 23:00 07:00 15:00 23:00 # Voids 2 Result Diagram: 02/17/18 1258 02/17/18 0630 Objective Remarks GENERAL: Patient sitting up in chair eating breakfast.. Appears comfortable. SKIN: Warm and dry. HEAD: Normocephalic. EYES: No scleral icterus. No injection or drainage. NECK: Supple, trachea midline. No JVD or lymphadenopathy. CARDIOVASCULAR: Regular rate and rhythm without murmurs, gallops, or rubs. RESPIRATORY: Breath sounds equal bilaterally. No accessory muscle use. GASTROINTESTINAL: Abdomen soft, non-tender, nondistended. MUSCULOSKELETAL: No cyanosis, or edema. BACK: Nontender without obvious deformity. No CVA tenderness. A/P Assessment and Plan 77-year-old male with suspected dementia who presented to the emergency department under [place] act. //Altered mental status/suspected dementia Patient lives with his brother who has recently undergone total knee replacement surgery and is unable to care for him at this time Patient is unable to return home alone, will need supervision at discharge Urine tox screen negative -CM assisting with discharge plan. CM discussed with patients brother today who is still in the hospital but plans to have brother return home once he himself is discharged from the hospital. -fall precautions -PT eval - no PT needs identified but requires supervision at home for safety = Patient's son is coming into town, hopefully patient can go home today //Hypertension -Patient started on Norvasc 5 mg daily -Clonidine as needed with parameters -Continue to monitor BP and adjust treatment accordingly //Probable CKD Creatinine 1.63, no labs available for baseline comparison -Given IV fluids -creatinine stable -Avoid nephrotoxic agent -Continue to monitor kidney function, repeat BMP in a.m. = Stable. No need for IV. //DVT prophylaxis -Heparin Discharge Planning Patient requires supervision at home and his brother who is a press writer is currently in the hospital having recently undergone a total knee replacement. Case management assisting with ongoing DC planning. Home with family. Ervin Myers MD Feb 19, 2018 09:28
--- NOTE | 2018-02-19 09:34 | HHI.DS ---
Discharge Summary Admission Date Feb 16, 2018 at 00:21 Discharge Date: Feb 19, 2018 Admitting Diagnosis Dementia (1) Dementia ICD Code: F03.90 - Unspecified dementia without behavioral disturbance Status: Acute Procedures None Brief History - From Admission 77-year-old male who presented to the emergency department under [place] act by the [employer]. The patient is unable to describe the events that led to his arrival in the ED. Per ED documentation the patient was found [place] a gas station in a confused state and was placed under [place] act and brought to the emergency department for further evaluation. The patient reports that he lives in [place]. He states he drove to [facility] to see "if they have all the sickness here." He is cooperative and attempts to answer my questions but states he cannot remember any of his past medical history. He does not know what medications he takes. The patient reportedly lives with his brother, Fantasma Mcacbe ([phone]) who reports that the patient has been exhibiting increasing confusion that has been progressing over the past 6 months. The patient denies any pain. He has no complaints at this time. CBC/BMP: 02/17/18 1258 02/17/18 0630 Significant Findings Laboratory Tests Test 02/17/18 06:30 02/17/18 12:58 Blood Urea Nitrogen 19 MG/DL (7-18) Creatinine 1.60 MG/DL (0.60-1.30) Calcium Level 8.3 MG/DL (8.5-10.1) Estimat Glomerular Filtration Rate 42 ML/MIN (>89) Red Blood Count 3.89 MIL/MM3 (4.50-5.90) Hematocrit 38.2 % (39.0-51.0) Monocytes (%) (Auto) 11.9 % (0.0-8.0) Imaging Last Impressions Chest X-Ray 02/15/18 2318 Signed Impressions: CONCLUSION: No active disease. Linear scarring right lung base. Head CT 02/15/18 0000 Signed Impressions: CONCLUSION: 1. No acute intracranial abnormalities. 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 PE at Discharge GENERAL: Well-developed well-nourished elderly male patient, in no acute distress. Awake and alert. A&O x 2. SKIN: No rashes, ecchymoses or lesions. Cool and dry. HEAD: Atraumatic. Normocephalic. EYES: Pupils equal round and reactive. Extraocular motions intact. No scleral icterus. No injection or drainage. ENT: Nose without bleeding or purulent drainage. Airway patent. MMM. NECK: Trachea midline. CARDIOVASCULAR: Regular rate and rhythm without murmurs, gallops, or rubs. RESPIRATORY: Nonlabored. Clear to auscultation. Breath sounds equal bilaterally. No wheezes, rales, or rhonchi. GASTROINTESTINAL: Abdomen soft, non-tender, nondistended. No guarding. MUSCULOSKELETAL: Extremities without clubbing, cyanosis, or edema. No calf tenderness. NEUROLOGICAL: Awake and alert. Pleasantly confused. Cranial nerves II through XII grossly intact. Motor and sensory grossly within normal limits. Nonfocal. Normal speech. PSYCHIATRIC: Calm and cooperative with examination. Hospital Course Patient with creatinine 1.6 on admission, likely chronic as is stable here. CT brain shows old lacunar infarct. Patient presented with accelerated hypertension with systolic blood pressures in the 190s, however this improved with initiation of amlodipine. Patient feeling well. Patient will need supervision, and family was in the hospital recently. Patient to be discharged home with family. For Problem based summary from most recent progress note, please see below. 77-year-old male with suspected dementia who presented to the emergency department under [place] act. //Altered mental status/suspected dementia Patient lives with his brother who has recently undergone total knee replacement surgery and is unable to care for him at this time Patient is unable to return home alone, will need supervision at discharge Urine tox screen negative -CM assisting with discharge plan. CM discussed with patients brother today who is still in the hospital but plans to have brother return home once he himself is discharged from the hospital. -fall precautions -PT eval - no PT needs identified but requires supervision at home for safety = Patient's son is coming into town, hopefully patient can go home today //Hypertension -Patient started on Norvasc 5 mg daily -Clonidine as needed with parameters -Continue to monitor BP and adjust treatment accordingly //Probable CKD Creatinine 1.63, no labs available for baseline comparison -Given IV fluids -creatinine stable -Avoid nephrotoxic agent -Continue to monitor kidney function, repeat BMP in a.m. = Stable. No need for IV. //DVT prophylaxis -Heparin Discharge Planning Patient requires supervision at home and his brother who is a precision lathe operator is currently in the hospital having recently undergone a total knee replacement. Case management assisting with ongoing DC planning. Home with family. Pt Condition on Discharge: Good Discharge Disposition: Disch w/ Home Health Serv Discharge Time: > 30 minutes Discharge Instructions DIET: Follow Instructions for: Heart Healthy Diet Activities you can perform: Regular-No Restrictions Other Activity Instructions: need supervision at all times Follow up Referrals: PCP Follow-up - 1 Week New Medications: Amlodipine (Norvasc) 5 Mg Tab 5 MG PO DAILY for Blood Pressure Management for 30 Days, #30 TAB Ervin Myers MD Feb 19, 2018 09:34
== END 2018-02-19 11:57 | disposition home or self-care (01) ==
LOC: NEPD 23:08 → NEDA 02-16 00:21 → UNDOADMOB 02-16 00:23 → NEDH 02-16 08:00 → NEPGCP 02-16 13:40
PROVIDERS: ADMIT Internal Medicine; ATTEND Internal Medicine
DX: R41.82 Altered mental status, unspecified (principal); F03.90 Unspecified dementia, unspecified severity, without behavioral disturbance, psychotic disturbance, mood disturbance, and anxiety; I10 Essential (primary) hypertension; N17.9 Acute kidney failure, unspecified; F10.10 Alcohol abuse, uncomplicated; H91.90 Unspecified hearing loss, unspecified ear; F17.200 Nicotine dependence, unspecified, uncomplicated; Z86.73 Personal history of transient ischemic attack (TIA), and cerebral infarction without residual deficits
CPT/HCPCS: 70450; 71045; 80048; 80053; 80307; 81001; 84443; 85025; 87086; 96360; 96361; 97110; 97116; 97162; 99285; G0378; G8987; G8988; J1644; J7030